=== PATIENT | female | born 1960 | race Two or more races ===

== ENCOUNTER 2024-05-13 08:44 | Outpatient (CLI) | payer OTHER ==
[2024-05-13 09:53] LABS: PH,URINE 6.5 (5.0-8.0); URINE APPEARANCE Clear; URINE BILIRRUBIN Negative (NEGATIVE); URINE BLOOD Negative; URINE COLOR Yellow; URINE GLUCOSE Negative (NEGATIVE); URINE KETONE Negative (NEGATIVE); URINE LEUKOCYTE Negative; URINE NITRATE Negative; URINE PROTEIN Negative (NEGATIVE); URINE UROBILINOGEN 0.2 E.U./dl
[2024-05-13 09:53] LABS: HEMATOCRIT 41.5 % (36.0-45.00); HEMOGLOBIN 14.2 g/dL (12.0-15.00); MEAN CELL VOLUME 91.9 fL (80.00-100.00); MEAN CORPUSCULAR HEMOGLOBIN 31.5 pg (27.00-32.0); MEAN CORPUSCULAR HGB CONC 34.3 g/dl (32.0-36.0); PLATELET COUNT 295 K/uL (150-450); RED BLOOD COUNT 4.52 M/uL (4.00-6.00); RED CELL DISTRIBUTION WIDTH 12.8 % (11.5-14.5)
[2024-05-13 09:56] LABS: URINE BACTERIA 1178.4 uL (0.0-1933); URINE EPITHELIAL CELLS 16.2 uL (0.0-38.8); URINE RBC 13.9 uL (0.0-20.8); URINE WBC 13.7 uL (0.0-23.2)
[2024-05-13 10:43] LABS: ALBUMIN 3.7 gm/dL (3.4-5.0); BILIRUBIN TOTAL 0.33 mg/dL (0.3-1.2); CALCIUM 8.6 mg/dL (8.5-10.1); CHOL HDL RATIO 3.3 (0-5.0); CREATININE SERUM 0.73 mg/dL (0.55-1.02); GFR 80.78; GLOBULINA 2.7 G/DL (2.4-3.5); POTASSIUM 3.95 mEq/L (3.5-5.1); TOTAL PROTEIN 6.4 gm/dL (6.4-8.2); TSH 0.723 uIU/mL (0.358-3.74)
[2024-05-15 11:52] LABS: VITAMIN D3 25 HYDROXY 20.07 ng/ml (30-120)
[2024-05-16 09:10] LABS: PROGESTERONA 0.4 ng/mL (.)
[2024-05-16 11:06] LABS: ESTRADIOL SERUM 26.7 pg/mL (0.0-54.7)
== END 2024-05-13 08:47 | disposition home or self-care (01) ==
LOC: LAB 08:44
DX: R73.09 Other abnormal glucose (principal)